=== PATIENT | female | born 1950 | race Caucasian/White ===

== ENCOUNTER → 2017-12-19 16:23 | Outpatient (CLI) | payer OTHER, SELFPAY ==
--- NOTE | 2017-12-23 10:53 | PM.PFT.1 ---
Pulmonary Function Test Referral & Results Date Patient Seen: 12/19/17 Requesting provider: Reba Stover Results: The spirometry demonstrates an FVC of 2.13 L which is 71% of predicted. The FEV1 was measured at 1.70 L which is 75% of predicted. The FEV1/FVC ratio was 80 which is 103% of predicted. Following the administration of bronchodilator there was a 12% improvement in FEV1 and a 55% improvement in FEF 25-75%. Lung volumes show an SVC of 2.18 L which is 77% of predicted. The diffusing capacity was measured at 21.08 which is 91% of predicted. The maximum voluntary ventilation was slightly reduced. Interpretation: This study demonstrates mild obstructive lung disease with some limited evidence of benefit following the administration of bronchodilator based upon 12% improvement in FEV1 and 50+ percent improvement in FEF 25-75% There is also mild restrictive lung disease present
== END ==
PROVIDERS: Family Provider Internal Medicine; PCP Internal Medicine; Visit Provider Internal Medicine
DX: R05 Cough (principal); R06.2 Wheezing; J98.4 Other disorders of lung
CPT/HCPCS: 94010; 94060; 94726; 94729

== ENCOUNTER → 2018-06-01 13:45 | Outpatient (CLI) | payer OTHER, SELFPAY ==
[2018-06-01 14:44] LABS: Hematocrit 38.3 % (36-46); Hemoglobin 12.9 g/dL (12.0-16.0)
[2018-06-01 15:17] LABS: Cholesterol 198 mg/dL (140-199); HDL Cholesterol 59 mg/dL (40-60); LDL Cholesterol Calculated 116 mg/dL (<100); Triglycerides 116 mg/dL (35-150)
[2018-06-01 15:27] LABS: Alanine Aminotransferase 25 IU/L (9-52); Albumin 4.6 g/dL (3.5-5.0); Albumin Globulin Ratio 1.5 (1.0-2.8); Alkaline Phosphatase 67 U/L (38-126); Aspartate Aminotransferase 24 IU/L (14-36); Bilirubin Total 0.4 mg/dL (0.2-1.3); Blood Urea Nitrogen 18 mg/dL (7-17); Calcium 9.5 mg/dL (8.4-10.2); Carbon Dioxide 26 mmol/L (22-32); Chloride 104 mmol/L (98-107); Estimated Glomerular Filt Rate > 60.0 mL/min (>60); Globulin 3.1 g/dL (1.7-4.1); Glucose 90 mg/dL (80-110); HEMOLYSIS < 15 (0-50); Potassium 3.9 mmol/L (3.4-5.1); Sodium 144 mmol/L (137-145); Total Protein 7.7 g/dL (6.3-8.2)
[2018-06-01 15:47] LABS: Thyroid Stimulating Hormone 2.41 uIU/mL (0.47-4.68)
== END ==
PROVIDERS: Family Provider Internal Medicine; PCP Internal Medicine; Visit Provider Registered Nurse
DX: R42 Dizziness and giddiness (principal); E78.5 Hyperlipidemia, unspecified
CPT/HCPCS: 36415; 80053; 80061; 84443; 85014; 85018

== ENCOUNTER → 2018-06-21 15:16 | Outpatient (CLI) | payer OTHER, SELFPAY ==
--- NOTE | 2018-06-21 15:20 | DI.CT.S_ITS ---
PROCEDURE: CT CHEST WO CON INDICATIONS: chronic cough, h/o smoking TECHNIQUE: Noncontrast 5 mm thick sections acquired from the pulmonary apices to the posterior costophrenic angles. 7 mm thick coronal and sagittal MIP reformats were then acquired. For radiation dose reduction, the following was used: automated exposure control, adjustment of mA and/or kV according to patient size. COMPARISON: Former[facility], CT, CT-IVP, 03/03/2008, 11:53. [facility], CT, ABDOMEN/PELVIS WITH CONTRAST, 05/15/2008, 8:43. Former[facility], CR, CHEST 2 VIEW, 12/04/2017, 9:56. FINDINGS: Image quality: Excellent. Lungs and pleura: There is a 3 mm noncalcified nodule in the left lower lobe (series 3 image 29), unchanged since 05/15/2008, consistent with a benign nodule. A 4 mm calcified nodule in the left lower lobe is consistent with an old granuloma. There is right hemidiaphragm eventration and right lower lobe atelectasis. No acute air space opacities. No pleural effusions or pneumothorax. Central and peripheral airways are patent and normal in caliber. Mediastinum: Heart size is normal. No pericardial effusion. Slightly prominent subcarinal lymph node measures 1.5 cm in short axis. Thoracic aorta and central pulmonary arteries are normal in size. Esophagus is normal in caliber. No hiatal hernia. Bones and chest wall: No suspicious bony lesions. No vertebral body compression fractures. No axillary or supraclavicular adenopathy by size criteria. Thyroid gland is normal. Abdomen: Visualized upper abdominal solid organs and bowel loops appear normal in the absence of contrast. Scattered colonic diverticula noted. IMPRESSION: 1. A couple of benign nodules are present in the left lower lobe. No further followup is recommended. 2. Right hemidiaphragm eventration and right basilar atelectasis. 3. A cause for chronic cough is not identified. 4. Mildly enlarged subcarinal lymph node measuring 1.5 cm. This finding is nonspecific and may be reactive. Recommend clinical correlation and follow up. 5. Mild colonic diverticulosis. Dictated by: Robyn Verma M.D. on 06/21/2018 at 16:02 Approved by: Robyn Verma M.D. on 06/21/2018 at 16:13
== END ==
PROVIDERS: Family Provider Internal Medicine; PCP Internal Medicine; Visit Provider Internal Medicine
DX: R05 Cough (principal); R91.8 Other nonspecific abnormal finding of lung field; J98.11 Atelectasis; K57.90 Diverticulosis of intestine, part unspecified, without perforation or abscess without bleeding; R59.0 Localized enlarged lymph nodes; Z87.891 Personal history of nicotine dependence
CPT/HCPCS: 71250

== ENCOUNTER 2018-06-29 14:48 | Outpatient (RCR) | payer OTHER, SELFPAY ==
--- NOTE | 2018-06-29 16:00 | PT.OPPOC ---
Current Diagnoses Dizziness and giddiness (06/29/18) Provider Visit Care Team Role Provider Type SARA Rasheed Family Provider Advanced Nitrating Acid Mixer Primary Care Provider Specialty: Family Practice Address: [address] [place] [address], [id number] Email: [email or web address] Elton Rojas MD Attending Provider Physician Specialty: Ear, Nose, Throat Address: [address] [place] [address], [id number] Email: Plan Of Care PT-OP-T Assessment and Plan Start: 07/02/18 11:19 Freq: Status: Active Protocol: Document 06/29/18 15:15 DCW (Rec: 07/02/18 11:44 DCW [id number]) Physical Therapy Assessment Rehab Potential Rehabilitation Potential Fair Evaluation Complexity Number of Personal Factors/Comorbidities 0 Number of Body Systems Impaired 1-2 Clinical Presentation at Evaluation Unstable Impairments Impairments Balance Vestibular Assessment Summary Assessment Pt presents with signs and symptoms somewhat consistent with visual motion sensitivity /optokinetic nystagmus, however this is mainly based on her history and subjective symptoms. Pt's vestibular exam is almost entirely negative, with the only abnormal result being a 5-line degradation during her DVA test, however, that is not very meaningful by itself. Pt was given some VOR retraining exercises, however since she has no ongoing symptoms while not in an episode, there is no indication that further skilled therapy will improve her condition. Pt is in agreement with her new HEP and discharge at this time. Physical Therapy Plan Frequency and Duration Frequency of Treatment D/C Plan of Care Start Date 06/29/18 Plan of Care End Date 06/29/18 Discharge Physical Therapy Discharge Reasons No Longer Attending PT Discharge Comments No further PT indicated at this time. Plan of Care Dates Plan of Care Start Date 06/29/18 Plan of Care End Date 06/29/18 Please Sign and Return: I have reviewed this Plan of Care and certify that the skilled therapy services above are required to meet the patient?s needs. Physician Signature Date Printed Name and Credentials Clinical Instructor Signature Printed Name and Credentials
--- NOTE | 2018-06-29 16:00 | PT.OIE ---
Current Diagnoses Dizziness and giddiness (06/29/18) Past Medical History (Last Reviewed 06/01/18 @ 15:34 by SARA Mcgovern) Allergic contact dermatitis (Chronic ~1979) Chronic back pain (Chronic 2011) Foot pain (Chronic 1999) Hayfever (Chronic ~1979) Hyperthyroidism (Chronic 2009) Shoulder pain (Chronic 2009) Urinary incontinence (Chronic ~1989) Chicken pox (Resolved) Measles (Resolved) Mumps (Resolved) Past Surgical History (Last Reviewed 06/01/18 @ 15:34 by SARA Mcgovern) Anesthesia (Resolved) Status post dilation and curettage (Resolved 08/18/15) Status post hysteroscopy (Resolved 08/18/15) Provider Visit Care Team Role Provider Type SARA Rasheed Family Provider Advanced Stain Applicator Primary Care Provider Specialty: Family Practice Address: [address] [place] [address] Email: [email or web address] Elton Rojas MD Attending Provider Physician Specialty: Ear, Nose, Throat Address: [address] [place] [address] Email: Physical Therapy Initial Evaluation PT-OP-A Visit Information Start: 07/02/18 11:19 Freq: Status: Active Protocol: Document 06/29/18 15:15 DCW (Rec: 07/02/18 11:44 DC [id number]) Out-Patient Physical Therapy Visit Information Visit Information Visit Type Initial Evaluation Visit Start Time 15:15 Visit Stop Time 16:00 Total Visit Minutes 45 Visit Number 1 Number of SENIOR REACTOR OPERATOR Visits 0 Evaluation Information Evaluation Date 06/29/18 PT-OP-B Current Condition Start: 07/02/18 11:19 Freq: Status: Active Protocol: Document 06/29/18 15:15 DCW (Rec: 07/02/18 11:44 DCW [id number]) Current Condition History of Current Condition Onset Date Two months ago Current Complaints Lightheadedness with visual motion History of Current Condition Pt is a 68 year old female presenting with a two month history of episodes of lightheadedness and heart palpitations, which are reportedly random, but per pt' s reports, appear to be associated with increased visual motion. Pt reports her first episode occurred when walking around downtown [place] during the [place], and her second one occurred while walking through a casino in [place]. Pt notes three other episodes, however she cannot remember anything notable occurring. Pt reports her episodes last about three hours, however she does not really feel like she has any difficulty when she is not in the middle of an episode. Pt reports no other real medical issues. Treatment Goals Patient/Caregiver Goals I don't really know if PT will help, because I don't really have any balance problems when I'm not having an episode. Prior Functional Status Baseline Function- ADL's Independent Baseline Function- Mobility Independent PT-OP-C Subjective Start: 07/02/18 11:19 Freq: Status: Active Protocol: Document 06/29/18 15:15 DCW (Rec: 07/02/18 11:44 DCW [id number]) Patient Questionnaires ABC- Activity Specific Balance Confidence Scale ABC Score 80.94% ABC Functional Impairment 1 to <20% Impaired (Score 81- 99) Dizziness Handicap Inventory DHI Score 24% DHI Functional Impairment 20 to 39% Impaired (Score 20- 39) OP-PT Pain Assessment Pain Assessment Grid Paper Pain Assessment Grid Completed No PT-OP-D Balance Start: 07/02/18 11:19 Freq: Status: Active Protocol: Document 06/29/18 15:15 DCW (Rec: 07/02/18 11:44 DCW [id number]) OP-PT Balance Assessment Sitting Balance Static Sitting Balance Ability Normal Dynamic Sitting Balance Ability Normal Standing Balance Static Standing Balance Ability Normal Dynamic Standing Balance Ability Normal Balance Tests CTSIB CTSIB Position 1 Slight Sway CTSIB Position 2 Mild Sway CTSIB Position 3 Mild Sway CTSIB Position 4 Mild Sway CTSIB Position 5 Moderate Sway CTSIB Position 6 Mild Sway Nichols Fall Scale Copyright Permission Simone SABILLON, Simone RM, Nicanor SJ. Development of a scale to identify the fall- prone patient. Can J Aging 1989;8;366-7. Namita Nichols (2009). Preventing patient falls. (2nd ed). [place]: Burrell. PT-OP-E Functional Tests Start: 07/02/18 11:44 Freq: Status: Active Protocol: Document 06/29/18 15:15 DCW (Rec: 07/02/18 11:45 DCW [id number]) Functional Tests Functional Gait Assessment Score 30/30 Functional Gait Assessment Impairment 0% Impaired (Score 30) Rating PT-OP-O Vestibular Start: 07/02/18 11:19 Freq: Status: Active Protocol: Document 06/29/18 15:15 DCW (Rec: 07/02/18 11:44 DCW [id number]) Vestibular Assessment Screening Tests Vestibular Artery Screen Negative Auditory Tests Gordon Test Negative Rinne Test Negative Air Conduction Results Equal Visual Testing Smooth Pursuits Horizontal Negative Smooth Pursuits Vertical Negative Saccades Horizontal Negative Gaze Evoked Nystagmus With Fixation Negative Gaze Evoked Nystagmus Without Fixation Negative Heave Test Negative Thrust Head Negative DVA (Line Degradation) 5 Head Shake Negative Positional Testing [place]-Hallpike Negative Left Negative Right Rolling Test Negative Left Negative Right PT-OP-Q Treatments Start: 07/02/18 11:19 Freq: Status: Active Protocol: Document 06/29/18 15:15 DCW (Rec: 07/02/18 11:44 DCW [id number]) Neuro Re-Education Treatment Vestibular Rehabilitation Corrective Saccades Distance From Target Arm length Speed As tolerated Targets Distance From Target Arm length Speed As tolerated X1 Viewing Distance From Target Arm length Speed As tolerated VOR Retraining Distance From Target Arm length Speed As tolerated PT-OP-T Assessment and Plan Start: 07/02/18 11:19 Freq: Status: Active Protocol: Document 06/29/18 15:15 DCW (Rec: 07/02/18 11:44 DCW [id number]) Physical Therapy Assessment Rehab Potential Rehabilitation Potential Fair Evaluation Complexity Number of Personal Factors/Comorbidities 0 Number of Body Systems Impaired 1-2 Clinical Presentation at Evaluation Unstable Impairments Impairments Balance Vestibular Assessment Summary Assessment Pt presents with signs and symptoms somewhat consistent with visual motion sensitivity /optokinetic nystagmus, however this is mainly based on her history and subjective symptoms. Pt's vestibular exam is almost entirely negative, with the only abnormal result being a 5-line degradation during her DVA test, however, that is not very meaningful by itself. Pt was given some VOR retraining exercises, however since she has no ongoing symptoms while not in an episode, there is no indication that further skilled therapy will improve her condition. Pt is in agreement with her new HEP and discharge at this time. Physical Therapy Plan Frequency and Duration Frequency of Treatment D/C Plan of Care Start Date 06/29/18 Plan of Care End Date 06/29/18 Discharge Physical Therapy Discharge Reasons No Longer Attending PT Discharge Comments No further PT indicated at this time.
--- NOTE | 2018-07-02 11:45 | PT.OIE ---
Current Diagnoses Dizziness and giddiness (06/29/18) Past Medical History (Last Reviewed 06/01/18 @ 15:34 by SARA Mcgovern) Allergic contact dermatitis (Chronic ~1979) Chronic back pain (Chronic 2011) Foot pain (Chronic 1999) Hayfever (Chronic ~1979) Hyperthyroidism (Chronic 2009) Shoulder pain (Chronic 2009) Urinary incontinence (Chronic ~1989) Chicken pox (Resolved) Measles (Resolved) Mumps (Resolved) Past Surgical History (Last Reviewed 06/01/18 @ 15:34 by SARA Mcgovern) Anesthesia (Resolved) Status post dilation and curettage (Resolved 08/18/15) Status post hysteroscopy (Resolved 08/18/15) Provider Visit Care Team Role Provider Type SARA Rasheed Family Provider Advanced Paper Cap Machine Operator Primary Care Provider Specialty: Family Practice Address: [address] [place] [address] Email: [email or web address] Elton Rojas MD Attending Provider Physician Specialty: Ear, Nose, Throat Address: [address] [place] [address] Email: Physical Therapy Initial Evaluation PT-OP-A Visit Information Start: 07/02/18 11:19 Freq: Status: Active Protocol: Document 06/29/18 15:15 DCW (Rec: 07/02/18 11:44 DC [id number]) Out-Patient Physical Therapy Visit Information Visit Information Visit Type Initial Evaluation Visit Start Time 15:15 Visit Stop Time 16:00 Total Visit Minutes 45 Visit Number 1 Number of TRANSITION MANAGER Visits 0 Evaluation Information Evaluation Date 06/29/18 PT-OP-B Current Condition Start: 07/02/18 11:19 Freq: Status: Active Protocol: Document 06/29/18 15:15 DCW (Rec: 07/02/18 11:44 DCW [id number]) Current Condition History of Current Condition Onset Date Two months ago Current Complaints Lightheadedness with visual motion History of Current Condition Pt is a 68 year old female presenting with a two month history of episodes of lightheadedness and heart palpitations, which are reportedly random, but per pt' s reports, appear to be associated with increased visual motion. Pt reports her first episode occurred when walking around downtown [place] during the [place], and her second one occurred while walking through a casino in [place]. Pt notes three other episodes, however she cannot remember anything notable occurring. Pt reports her episodes last about three hours, however she does not really feel like she has any difficulty when she is not in the middle of an episode. Pt reports no other real medical issues. Treatment Goals Patient/Caregiver Goals I don't really know if PT will help, because I don't really have any balance problems when I'm not having an episode. Prior Functional Status Baseline Function- ADL's Independent Baseline Function- Mobility Independent PT-OP-C Subjective Start: 07/02/18 11:19 Freq: Status: Active Protocol: Document 06/29/18 15:15 DCW (Rec: 07/02/18 11:44 DCW [id number]) Patient Questionnaires ABC- Activity Specific Balance Confidence Scale ABC Score 80.94% ABC Functional Impairment 1 to <20% Impaired (Score 81- 99) Dizziness Handicap Inventory DHI Score 24% DHI Functional Impairment 20 to 39% Impaired (Score 20- 39) OP-PT Pain Assessment Pain Assessment Grid Paper Pain Assessment Grid Completed No PT-OP-D Balance Start: 07/02/18 11:19 Freq: Status: Active Protocol: Document 06/29/18 15:15 DCW (Rec: 07/02/18 11:44 DCW [id number]) OP-PT Balance Assessment Sitting Balance Static Sitting Balance Ability Normal Dynamic Sitting Balance Ability Normal Standing Balance Static Standing Balance Ability Normal Dynamic Standing Balance Ability Normal Balance Tests CTSIB CTSIB Position 1 Slight Sway CTSIB Position 2 Mild Sway CTSIB Position 3 Mild Sway CTSIB Position 4 Mild Sway CTSIB Position 5 Moderate Sway CTSIB Position 6 Mild Sway Nichols Fall Scale Copyright Permission Simone SABILLON, Simone RM, Nicanor SJ. Development of a scale to identify the fall- prone patient. Can J Aging 1989;8;366-7. Namita Nichols (2009). Preventing patient falls. (2nd ed). [place]: Burrell. PT-OP-E Functional Tests Start: 07/02/18 11:44 Freq: Status: Active Protocol: Document 06/29/18 15:15 DCW (Rec: 07/02/18 11:45 DCW [id number]) Functional Tests Functional Gait Assessment Score 30/30 Functional Gait Assessment Impairment 0% Impaired (Score 30) Rating PT-OP-O Vestibular Start: 07/02/18 11:19 Freq: Status: Active Protocol: Document 06/29/18 15:15 DCW (Rec: 07/02/18 11:44 DCW [id number]) Vestibular Assessment Screening Tests Vestibular Artery Screen Negative Auditory Tests Gordon Test Negative Rinne Test Negative Air Conduction Results Equal Visual Testing Smooth Pursuits Horizontal Negative Smooth Pursuits Vertical Negative Saccades Horizontal Negative Gaze Evoked Nystagmus With Fixation Negative Gaze Evoked Nystagmus Without Fixation Negative Heave Test Negative Thrust Head Negative DVA (Line Degradation) 5 Head Shake Negative Positional Testing [place]-Hallpike Negative Left Negative Right Rolling Test Negative Left Negative Right PT-OP-Q Treatments Start: 07/02/18 11:19 Freq: Status: Active Protocol: Document 06/29/18 15:15 DCW (Rec: 07/02/18 11:44 DCW [id number]) Neuro Re-Education Treatment Vestibular Rehabilitation Corrective Saccades Distance From Target Arm length Speed As tolerated Targets Distance From Target Arm length Speed As tolerated X1 Viewing Distance From Target Arm length Speed As tolerated VOR Retraining Distance From Target Arm length Speed As tolerated PT-OP-T Assessment and Plan Start: 07/02/18 11:19 Freq: Status: Active Protocol: Document 06/29/18 15:15 DCW (Rec: 07/02/18 11:44 DCW [id number]) Physical Therapy Assessment Rehab Potential Rehabilitation Potential Fair Evaluation Complexity Number of Personal Factors/Comorbidities 0 Number of Body Systems Impaired 1-2 Clinical Presentation at Evaluation Unstable Impairments Impairments Balance Vestibular Assessment Summary Assessment Pt presents with signs and symptoms somewhat consistent with visual motion sensitivity /optokinetic nystagmus, however this is mainly based on her history and subjective symptoms. Pt's vestibular exam is almost entirely negative, with the only abnormal result being a 5-line degradation during her DVA test, however, that is not very meaningful by itself. Pt was given some VOR retraining exercises, however since she has no ongoing symptoms while not in an episode, there is no indication that further skilled therapy will improve her condition. Pt is in agreement with her new HEP and discharge at this time. Physical Therapy Plan Frequency and Duration Frequency of Treatment D/C Plan of Care Start Date 06/29/18 Plan of Care End Date 06/29/18 Discharge Physical Therapy Discharge Reasons No Longer Attending PT Discharge Comments No further PT indicated at this time.
== END 2018-08-27 15:47 ==
LOC: PHYS 14:48
PROVIDERS: Family Provider Internal Medicine; PCP Internal Medicine; Visit Provider Otolaryngology
DX: R42 Dizziness and giddiness (principal)
CPT/HCPCS: 97112; 97161

== ENCOUNTER → 2018-07-17 06:57 | Outpatient (CLI) | payer OTHER, SELFPAY ==
[2018-07-17 07:54] LABS: Add Manual Diff / Slide Review NO; Basophils Percent Auto 1.5 % (0-2); Eosinophils Percent Auto 3.8 % (2-4); Hematocrit 40.8 % (36-46); Hemoglobin 13.5 g/dL (12.0-16.0); Lymphocytes Percent Auto 25.1 % (25-40); Mean Corpuscular HGB Conc 33.1 % (30-36); Mean Corpuscular Hemoglobin 29.7 PG (26-34); Mean Corpuscular Volume 89.8 fL (80-100); Monocytes Percent Auto 9.9 % (3-14); Neutrophils Absolute Auto 2800 /uL (3000-5900); Neutrophils Percent Auto 59.7 % (50-75); Platelet Count 288 X10^3/uL (150-400); Red Blood Cell Count 4.54 X10^6/uL (4.0-5.2); Red Cell Distribution Width 12.7 % (11.6-14.8); White Blood Cell Count 4.7 X10^3/uL (4.5-11.0)
== END ==
PROVIDERS: PCP Internal Medicine; Visit Provider Internal Medicine
DX: E03.9 Hypothyroidism, unspecified (principal); E78.5 Hyperlipidemia, unspecified
CPT/HCPCS: 36415; 85025

== ENCOUNTER → 2018-07-24 15:58 | Outpatient (CLI) | payer OTHER, SELFPAY ==
--- NOTE | 2018-07-24 16:02 | DI.RAD.S_ITS ---
PROCEDURE: XR CHEST 2V INDICATIONS: follow up lymph node seen on Chest CT TECHNIQUE: 2 views of the chest were acquired. COMPARISON: [facility], , CHEST 2 VIEW, 12/04/2017, 9:56. FINDINGS: Surgical changes and devices: None. Lungs and pleura: No pleural effusions or pneumothorax. Lungs are clear. Elevation of right hemidiaphragm is again seen and unchanged. Mediastinum: Mediastinal contours are normal. Heart size is normal. Bones and chest wall: No suspicious bony abnormalities. Soft tissues appear unremarkable. IMPRESSION: No acute cardiopulmonary pathology. Persistent elevation of right hemidiaphragm. Dictated by: Yifan Polanco M.D. on 07/24/2018 at 16:33 Approved by: Yifan Polanco M.D. on 07/24/2018 at 16:41
== END ==
PROVIDERS: Family Provider Internal Medicine; PCP Internal Medicine; Visit Provider Family Medicine
DX: R59.0 Localized enlarged lymph nodes (principal); R05 Cough
CPT/HCPCS: 71046

== ENCOUNTER → 2018-08-23 09:13 | Outpatient (CLI) | payer OTHER, SELFPAY ==
[2018-08-23 09:55] LABS: Influenza A and B by PCR Rapid Negative (Negative)
== END ==
PROVIDERS: Family Provider Internal Medicine; PCP Internal Medicine; Visit Provider Physician Assistant
DX: R68.89 Other general symptoms and signs (principal)
CPT/HCPCS: 87400

== ENCOUNTER → 2019-08-08 13:40 | Outpatient (CLI) | payer OTHER, SELFPAY ==
--- NOTE | 2019-08-08 | DI.US.S_ITS ---
PROCEDURE: US THYROID INDICATIONS: DYSPHAGIA TECHNIQUE: Real-time scanning was performed of the thyroid gland, with image documentation. COMPARISON: None. FINDINGS: Right: Thyroid lobe measures 3.4 x 0.7 x 1.5 cm, and is homogeneous in echotexture. Sub-5 mm hypoechoic nodules present. Left: Thyroid lobe measures 3.3 x 1.0 x 0.7 cm, and is homogenous in echotexture. Sub-5 mm hypoechoic nodules present. Isthmus: 1.4 mm thick. IMPRESSION: Sub-5 mm hypoechoic nodules present; otherwise the thyroid is normal. Given the small sizes, no follow up is warranted. Dictated by: Tod COTTON Interpreted: Yifan Polanco MD on 08/08/2019 at 16:57 Approved by: Yifan Polanco M.D. on 08/08/2019 at 21:17
== END ==
PROVIDERS: Family Provider Internal Medicine; PCP Internal Medicine; Visit Provider Internal Medicine
DX: R13.10 Dysphagia, unspecified (principal); E04.2 Nontoxic multinodular goiter; M85.88 Other specified disorders of bone density and structure, other site; Z78.0 Asymptomatic menopausal state; Z87.891 Personal history of nicotine dependence
CPT/HCPCS: 76536; 77080

== ENCOUNTER → 2019-10-30 10:15 | Outpatient (CLI) | payer OTHER, SELFPAY ==
--- NOTE | 2019-10-30 | DI.RAD.S_ITS ---
PROCEDURE: FL UPPER GI W AIR INDICATIONS: Dysphagia COMPARISON: None. FINDINGS: KUB: Preprocedural slackman film demonstrates a normal bowel gas pattern. No suspicious abdominal calcifications. Visualized solid organ contours appear normal. Bony structures appear unremarkable. Esophagus: Esophageal mucosa is normal on air-contrast views. There is esophageal dysmotility. No strictures, extrinsic mass effects, or diverticula. No hiatal hernia or elicited gastroesophageal reflux. Stomach: The stomach is normally distensible, with normal rugal fold thickness. No mucosal masses or ulcers. Pylorus and duodenal bulb appear normal in morphology. Duodenal folds are normal in thickness as well. IMPRESSION: Esophageal dysmotility otherwise unremarkable examination as above Dictated by: Dino Bailey M.D. on 10/30/2019 at 13:24 Approved by: Dino Bailey M.D. on 10/30/2019 at 13:25
== END ==
PROVIDERS: Family Provider Internal Medicine; PCP Internal Medicine; Referring Provider Internal Medicine; Visit Provider Internal Medicine
DX: R13.10 Dysphagia, unspecified (principal); K22.4 Dyskinesia of esophagus
CPT/HCPCS: 74240

== ENCOUNTER → 2020-03-20 14:24 | Outpatient (CLI) | payer OTHER, SELFPAY ==
[2020-03-23 21:06] LABS: COVID19 Sendout Not Detected (Not Detect)
== END ==
PROVIDERS: PCP Internal Medicine; Visit Provider Physician Assistant
DX: Z11.59 Encounter for screening for other viral diseases (principal)
CPT/HCPCS: 87635

== ENCOUNTER 2020-03-23 14:26 | Day surgery (SDC) | payer OTHER, SELFPAY ==
--- NOTE | 2020-03-23 | PATH_ITS ---
[facility] Accession Number: [id number] . 01 Material submitted: . PART A: duodenum - DUODENUM PART B: stomach - PYLORUS PART C: stomach - FUNDUS PART D: stomach - BODY OF STOMACH PART E: esophagus, E-G Junction - 3 O'CLOCK GE JUNCTION PART F: esophagus, E-G Junction - 12 O'CLOCK GE JUNCTION PART G: esophagus - MID ESOPHAGUS . 02 Diagnosis: A. Duodenum, Biopsy: Duodenal mucosa with no diagnostic abnormality. Negative for active inflammation, features of sprue, dysplasia, or malignancy. . B. Stomach, Pylorus, Biopsy: Antral mucosa with mild chronic gastritis. Negative for Helicobacter by immunohistochemistry. Negative for intestinal metaplasia. Negative for dysplasia and malignancy. . C. Stomach, Fundus, Biopsy: Body-type mucosa with no diagnostic abnormality. No evidence of Helicobacter on H/E stain. Negative for intestinal metaplasia. Negative for dysplasia and malignancy. . D. Stomach, Body, Biopsy: Body-type mucosa with mild chronic gastritis. Negative for Helicobacter by immunonhistochemistry. Negative for intestinal metaplasia. Negative for dysplasia and malignancy. . E-F: Gastroesophageal Junction, 3 o'clock, 12 o'clock, Biopsies: Squamous epithelium with no diagnostic abnormality. Intraepithelial eosinophils are not increased. Columnar epithelium not sampled. Negative for dysplasia and malignancy. . G. Mid Esophagus, Biopsy: Squamous epithelium with no diagnostic abnormality. Intraepithelial eosinophils are not increased. Negative for dysplasia and malignancy. [facility] 03/26/2020 1414 Local . 02 Electronically signed: . Elisha Lyn MD, Pathologist NPI- [id number] . 01 Gross description: . Part A: DUODENUM: Received in formalin is 1 fragment(s) of phelan, soft tissue measuring 0.1 x 0.1 x 0.1 cm submitted entirely in 1 cassette(s) Part B: PYLORUS: Received in formalin is 1 fragment(s) of phelan, soft tissue measuring 0.2 x 0.1 x 0.1 cm submitted entirely in 1 cassette(s) Part C: FUNDUS: Received in formalin is 1 fragment(s) of phelan, soft tissue measuring 0.3 x 0.2 x 0.2 cm submitted entirely in 1 cassette(s) Part D: BODY OF STOMACH: Received in formalin is 1 fragment(s) of phelan, soft tissue measuring 0.2 x 0.2 x 0.2 cm submitted entirely in 1 cassette(s) Part E: 3 O'CLOCK GE JUNCTION: Received in formalin is 1 fragment(s) of phelan, soft tissue measuring 0.1 x 0.1 x 0.1 cm submitted entirely in 1 cassette(s) Part F: 12 O'CLOCK GE JUNCTION: Received in formalin is 1 fragment(s) of phelan, soft tissue measuring 0.1 x 0.1 x 0.1 cm submitted entirely in 1 cassette(s) Part G: MID ESOPHAGUS: Received in formalin is 1 fragment(s) of phelan, soft tissue measuring 0.1 x 0.1 x 0.1 cm submitted entirely in 1 cassette(s) /THAD 03/24/2020 1935 Local . 02 Microscopic: . B-D: Immunohistochemical stains were performed on blocks B and D in order to evaluate for Helicobacter organisms and are both negative. The control stain showed appropriate reactivity. . * This test was developed and its performance characteristics determined by [facility]. It has not been cleared or approved by the U.S. Food and Drug Administration. The FDA has determined that such clearance or approval is not necessary. This test is used for clinical purposes. It should not be regarded as investigational or for research. . 02 Pathologist provided ICD-10: K22.4 . 02 CPT . 500054, 823224, 669570, 070828, 999109, 834748, 202127, G02813 Performed at: 01 [facility] [address] [place] [address], [place], [place] [id number] MD Sebas Palumbo MD Phone: [phone] Performed at: 02 [facility] [address] [place], [place] [id number] MD Elisha Lyn MD Phone: [phone]
--- NOTE | 2020-03-23 12:28 | P.HP_ITS ---
History of Present Illness History of Present Illness Date Patient Seen: 03/23/20 Chief complaint: DCC Narrative: 69 Years Old Female seen today for consideration of a screening colonoscopy a diagnostic EGD. She has had 2 previous endoscopies, a sigmoidoscopy approximately 15 to 20 years ago and a colonoscopy approximately 10 years ago, significant for diverticulosis. Denies any known history of polyps. Records not available at time of dictation. There have been no lower GI symptoms suggesting disease such as change in bowel habits, bleeding, abdominal pain or anemia. There's been no family history of colon cancer or colon polyps. She has been having dysphagia for 2 years. Reports that the feeling started at the base of her esophagus; was having a sensation that food was getting stuck. She also feels the same sensation sometimes at the back of her throat. Occurs both with water and solid food, not sure which one is more difficult. Never needs to vomit to release the pressure. Associated hoarse voice and a feeling that air is going up her sternum when she takes a deep breath. Originally referred to ENT but did not keep that appointment. On 10/28/2019 she stopped her Fosamax to see if that would help her dysphagia and it did not. She has since restarted it since her bone density worsened. Subsequent upper GI on 10/30/2019 showed esophageal dysmotility with no evidence of hiatal hernia or GERD. 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 No hematemesis, nausea, or sense of oral fullness. Has had a thyroid nodule, surveillance ultrasound on 08/07 showed a sub-5 mm hypoechoic nodule that due to the small size did not warrant follow-up. Overall health issues have been stable, including no major cardiac events for at least 6 weeks. Current Medications: 1) Betamethasone Dipropionate 0.05 % External Cream (Betamethasone Dipropionate) .... Apply a thin film to the affected area 2-3 times daily. Not for use on face. 2) Zyrtec Allergy 10 Mg Oral Capsule (Cetirizine Hcl) .... Take one tablet daily as needed for allergy symptoms. 3) Alendronate Sodium 70 Mg Oral Tablet (Alendronate Sodium) .... 1 tablet once a wk for osteoporosis. Take first a.m. with 8 oz. water. Don't lie down, eat or drink for 30 min. 4) Levothyroxine Sodium 88 Mcg Oral Tablet (Levothyroxine Sodium) .... Take one tablet 30-45 minutes prior to eating or drinking daily 5) Alclometasone Dipropionate 0.05 % External Cream (Alclometasone Dipropionate) .... Apply as needed for allergy symptoms 6) Patanol 0.1 % Ophthalmic Solution (Olopatadine Hcl) .... 1-2 drops each eye twice daily, as needed for allergic eye symptoms. Allergies: No Known Drug Allergies Past Medical History: Pregnancies: 1 Live Births: 1 Living Children: 1 PFT: 12/19/17 - Mild restrictive lung disease Multiple thyroid nodules HOARSENESS DYSPHAGIA OSTEOPOROSIS, POSTMENOPAUSAL Multiple nodules of lung SHORTNESS OF BREATH Past Surgical History: sigmoidoscopy, 1999 (approx) colonosocpy, 2009 (approx) Family History: Father: Apollo Vanessa (1927) - living Mother: Tari Vanessa (1926) - stroke late 70 years of age Siblings: Dajuan Otf (1957), Bryce Vanessa (1979), Sherin Otf Social History: Marital Status: - Minesh Bone - Retired Children: 1 - Keenan Norris 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 Household Members: 2 Education: 12th grade. Patient History Medical History (Updated 07/24/18 @ 18:47 by SARA Rasheed) Allergic contact dermatitis (Chronic ~1979) Chicken pox (Resolved) Chronic back pain (Chronic 2011) Foot pain (Chronic 1999) Hayfever (Chronic ~1979) Hyperthyroidism (Chronic 2009) Measles (Resolved) Mumps (Resolved) Shoulder pain (Chronic 2009) Urinary incontinence (Chronic ~1989) Surgical History Anesthesia (Resolved) Status post dilation and curettage (Resolved 08/18/15) Status post hysteroscopy (Resolved 08/18/15) Family & Social History Family History Brother Age: 61 Gout Kidney stone Nonalcoholic fatty liver disease Father Age: 91 Hypertension High cholesterol Kidney stone Mother Cancer Hypertension Stroke Brother No problems noted. Sister No problems noted. Tobacco & Substance use: Smoking Status Former smoker Meds Home Medications and Allergies Home Medications Medication Instructions Recorded Confirmed Type cetirizine 10 mg capsule 10 mg PO PRN PRN cap 06/01/18 03/23/20 History alendronate 70 mg tablet 70 mg PO QWEEK #12 tab 07/24/18 03/23/20 Rx betamethasone dipropionate 1 applic TOPICAL QDAY 03/23/20 03/23/20 History levothyroxine [Synthroid] 88 mcg PO QAM 03/23/20 03/23/20 History Allergies Allergy/AdvReac Type Severity Reaction Status Date / Time No Known Drug Allergies Allergy Verified 03/20/20 15:51 Review of Systems Review of Systems ROS: Yes All systems reviewed with the patient and are negative except as otherwise documented Exam Narrative Exam Narrative: General: Alert and oriented, appearing stated age and in no acute distress. Head: Head normocephalic/atraumatic. Neck: Neck soft and supple, no lymphadenopathy. Lungs: Clear to auscultation bilaterally, no wheezes, rhonchi or rales. Heart: normal rate and regular rhythm, no murmurs, rubs, gallops, or clicks, Abdomen: abdomen soft and non-tender without masses, organomegaly, or abdominal wall hernias, bowel sounds positive. Skin: intact without suspicious lesions or rashes, Psych: alert and cooperative; normal mood and affect; normal attention span and concentration; cognition, remote and recent memory appear to be intact, Assessment & Plan Assessment & Plan narrative: 1. Esophageal dysmotility 2. Dysphagia 3. Hoarseness 4. Screening for colon cancer 5. History of diverticulosis PLAN: 1. EGD 2. Colonoscopy The nature and character of the procedures as well as anticipated results were discussed. The possibility of not completing the procedure was also discussed. Possible complications including aspiration pneumonia, bleeding, perforation and reaction to medications either for sedation or preparation and missed lesions were discussed. Questions were answered and proceeding to the colonoscopy was elected. Informed consent signed.
--- NOTE | 2020-03-23 12:35 | PM.OP.ENDO ---
Operative Date/Time/Diagnoses Date of procedure: 03/23/20 Pre-op diagnosis: 1. Esophageal dysmotility 2. Dysphagia 3. Hoarseness Post-op diagnosis: other (see below) Procedure & Clinicians Study performed: EGD Same procedure as scheduled: Yes Indications: 1. Esophageal dysmotility 2. Dysphagia 3. Hoarseness Surgeon: Chichi Hanley Procedure Notes Procedure in detail: ENDOSCOPIST: Chichi Hanley MD Sedation RN: Theresa Nickerson RN Sedation start time: 16:30 Sedation end time: 16:52 PROCEDURE: EGD with biopsy REFERRING PROVIDER: SARA Rasheed INDICATIONS: 1. Esophageal dysmotility 2. Dysphagia 3. Hoarseness MEDICATION: Incremental doses of Versed and fentanyl until an appropriate level of sedation was achieved. ASA Ratin DURATION OF PROCEDURE: 20 minutes. COMPLICATIONS: None. LIMITATIONS: None EXTENT OF PROCEDURE: Third portion of the Duodenum. PROCEDURE: The high-definition gastroduodenoscope was introduced into the posterior oropharynx under direct vision after Hurricaine spray, noted IV sedation, and proper informed consent. The esophagus was identified and intubated under direct visualization. The scope was quickly passed through the esophagus and into the fundus of the stomach. A clear fundal pool was aspirated. The scope was then advanced to the antrum and the pylorus was identified. The scope was passed through the pylorus into the second and third portions of the duodenum. No abnormalities were noted in the duodenum, duodenal bulb or pyloric channel. Random biopsy taken x2. The 2nd biopsy was over a vessel that bled briskly, hemostatic clip placed x2 with excellent hemostasis. Area was observed for over 3 minutes with no further bleeding noted and scope was withdrawn. The antrum had superficial hyperemesis, targeted biopsy taken x2. J maneuver was produced. The proximal body, fundus and cardia had evidence of new ulcers, targeted biopsy taken x2. A moderate hiatal hernia was noted. Scope was broken out of the J maneuver and the remainder of the stomach was carefully inspected upon withdrawal and was normal, random biopsy taken x2. The stomach was carefully deflated of all air on withdrawal. The distal esophagus was carefully inspected and Z-line was noted to be irregular, targeted biopsy taken at 12 o'clock and 3 o'clock. Top of the gastric folds noted at 35 cm from the incisors; circumferential extent of the metaplasia was 32 cm from the incisors; maximal extent of the metaplasia was 31 cm from the incisors. The remainder of the esophagus was normal upon withdrawal, random biopsy taken x2 in the midesophagus. The larynx and vocal cords appeared to be unremarkable. IMPRESSION: 1. Superficial hyperemesis, antrum 2. Acute ulcers, fundus 3. Hiatal hernia, moderate 4. Irregular Z-line with endoscopically suspected esophageal mucosa, C3M4 PLAN: 1. Follow-up in clinic status post pathology results. The possibility of missed lesion including a malignancy was discussed prior with the patient. Potential alarm symptoms have been discussed and should be reported by the patient immediately. Complications: none Post-procedure Recommendations: Will call with biopsy results Follow up: weeks (2) Disposition: PACU
--- NOTE | 2020-03-23 12:36 | P.OP.ENDO_ITS ---
Operative Date/Time/Diagnoses Date of procedure: 03/23/20 Pre-op diagnosis: 1. Screening for colon cancer 2. History of diverticulosis Post-op diagnosis: other (1. Diverticulosis, left-sided, moderate) Procedure & Clinicians Study performed: Colonoscopy Same procedure as scheduled: Yes Indications: 1. Screening for colon cancer 2. History of diverticulosis Surgeon: Chichi Hanley Procedure Notes SCOAP/Timeout: 16:29 Procedure in detail: ENDOSCOPIST: Chichi Hanley MD Sedation RN: Theresa Nickerson RN Sedation start time: 16:59 Sedation end time: 17:16 PROCEDURE: Colonoscopy INDICATIONS: 1. Screening for colon cancer 2. History of diverticulosis MEDICATION: Levsin 0.125 mg sublingual, incremental doses of Versed and fentanyl until appropriate level sedation achieved. ASA CLASS: 2 CECAL WITHDRAWAL TIME: 11 minutes COMPLICATIONS: None. EXTENT OF PROCEDURE: Cecum. QUALITY OF PREP: Good with portions of liquid stool. PROCEDURE: Prior to insertion of the colonoscope, a digital rectal examination was acco mplished with circumferential palpation of the distal rectal mucosa without significant findings being noted. The high-definition colonoscope was passed into the rectum in the usual fashion and advanced over to the cecum without difficulty. The ileocecal valve, appendiceal stoma, and medial wall all could be inspected and no abnormalities were seen. ASCENDING COLON: As the colonoscope was withdrawn, care was taken to expose and inspect the haustral folds and no abnormalities were seen. HEPATIC FLEXURE: Normal, no polyps, diverticula or other abnormalities. TRANSVERSE COLON: Normal, no polyps, diverticula or other abnormalities. DESCENDING COLON: Moderate diverticulosis, otherwise, normal, no polyps, or other abnormalities. SIGMOID COLON: Moderate diverticulosis, otherwise, normal, no polyps, or other abnormalities. RECTUM: Normal. J maneuver was produced. There was no significant perianal disease. The J maneuver was broken. The remainder of the rectum was inspected and there was no external hemorrhoid disease. The scope was withdrawn. IMPRESSION: 1. Normal colonoscopy 2. Moderate diverticulosis, left-sided PLAN: 1. Follow-up in clinic status post pathology results. The possibility of a missed lesion including a malignancy has been discussed with the patient previously. Potential alarm symptoms have been discussed and should be reported immediately. Complications: none Post-procedure Recommendations: Colonscopy in 10 years Follow up: weeks (2) Disposition: PACU
[2020-03-23 15:00] VITALS: BP 146/73; PULSE 76; RESP 20; TEMP 36.6; O2SAT 96; BMI 28.1
[2020-03-23] MEDS: LACTATED RINGERS 1,000 ML 200 ML IV (15:34)
[2020-03-23] MEDS: HYOSCYAMINE 0.125 MG TABLET PO (15:34)
[2020-03-23 16:25] LABS: COVID19 -Nasal RAPID Negative (Negative)
[2020-03-23 17:20] VITALS: BP 122/70; PULSE 69; RESP 18; TEMP 36.7; O2SAT 96
[2020-03-23] MEDS: MIDAZOLAM 5 MG/5 ML VIAL IV (17:20)
[2020-03-23] MEDS: LIDOCAINE 4% SOLN 50 ML 20 ML TOP (17:21)
[2020-03-23] MEDS: fentaNYL 250 MCG/5 ML INJ IV (17:21)
[2020-03-23] MEDS: TETRACAINE/BENZOCAINE/BUTAMBEN (CETACAINE) BOTTLE 1 SPRAY TOP (17:22)
[2020-03-23] MEDS: LIDOCAINE JELLY 2% 5 ML 1 APPLIC TOP (17:22)
[2020-03-23 17:25] VITALS: BP 123/69; PULSE 53; RESP 16; O2SAT 96
[2020-03-23 17:30] VITALS: BP 123/69; PULSE 51; RESP 14; O2SAT 96
[2020-03-23 17:35] VITALS: BP 147/75; PULSE 62; RESP 16; O2SAT 97
[2020-03-23 17:44] VITALS: BP 131/73; PULSE 55; RESP 14; O2SAT 96
== END 2020-03-23 17:58 | disposition home or self-care (01) ==
PROVIDERS: PCP Internal Medicine; Referring Provider Student in an Organized Health Care Education/Training Program; Visit Provider Student in an Organized Health Care Education/Training Program
PROC: 0DJD8ZZ Inspection of Lower Intestinal Tract, Via Natural or Artificial Opening Endoscopic (ICD-10-PCS; CPT 45378; 2020-03-23 16:00)
DX: Z12.11 Encounter for screening for malignant neoplasm of colon (principal); K22.4 Dyskinesia of esophagus; K57.30 Diverticulosis of large intestine without perforation or abscess without bleeding; K25.3 Acute gastric ulcer without hemorrhage or perforation; K44.9 Diaphragmatic hernia without obstruction or gangrene; K29.50 Unspecified chronic gastritis without bleeding; Z11.59 Encounter for screening for other viral diseases
CPT/HCPCS: 43239; G0121; 87635; J2250; J3010

== ENCOUNTER → 2021-05-24 10:52 | Outpatient (CLI) | payer OTHER, SELFPAY ==
--- NOTE | 2021-05-24 | DI.RAD.S_ITS ---
PROCEDURE: XR CHEST 2V INDICATIONS: Wheezing TECHNIQUE: 2 views of the chest were acquired. COMPARISON: [facility], CR, XR CHEST 2V, 07/24/2018, 16:07. FINDINGS: Surgical changes and devices: None. Lungs and pleura: Lungs are clear. No pleural effusions or pneumothorax. Mediastinum: Mediastinal contours are normal. Heart size is normal. Asymmetric elevation of the right hemidiaphragm is unchanged. Bones and chest wall: No suspicious bony abnormalities. Soft tissues appear unremarkable. IMPRESSION: No acute cardiopulmonary process demonstrated radiographically. Dictated by: Joe Marcelino M.D. on 05/26/2021 at 8:21 Approved by: Joe Marcelino M.D. on 05/26/2021 at 8:22
== END ==
PROVIDERS: PCP Internal Medicine; Referring Provider Internal Medicine; Visit Provider Internal Medicine
DX: R06.2 Wheezing (principal); J44.9 Chronic obstructive pulmonary disease, unspecified
CPT/HCPCS: 71046

== ENCOUNTER → 2021-05-26 11:24 | Outpatient (CLI) | payer OTHER, SELFPAY ==
[2021-05-26 12:29] LABS: COVID19 -Nasal RAPID Negative (Negative)
== END ==
PROVIDERS: PCP Internal Medicine; Referring Provider Internal Medicine; Visit Provider Internal Medicine
DX: Z20.822 Contact with and (suspected) exposure to COVID-19 (principal)
CPT/HCPCS: 87635; C9803

== ENCOUNTER → 2021-05-27 06:46 | Outpatient (CLI) | payer OTHER, SELFPAY ==
--- NOTE | 2021-06-01 08:20 | PM.PFT.1 ---
Pulmonary Function Test Referral & Results Date Patient Seen: 05/27/21 Requesting provider: Cj Stover Results: The spirometry demonstrates an FVC of 2.05 L which is 71% of predicted. The FEV1 was measured at 1.74 L which is 80% of predicted. The FEV1/FVC ratio was 85 which is 111% of predicted. Following the administration of bronchodilator there was a 27% improvement in FEF 25-75% Lung volumes show an SVC of 2.32 L which is 84% of predicted. The diffusing capacity was measured at 21.84 which is 95% of predicted. The maximum voluntary ventilation was reduced Interpretation: This study demonstrates perhaps very minimally reduced FEV1 which would suggest possibility of very mild obstructive lung disease although FEV1/FVC ratio was preserved there is also evidence of minimal benefit in small airway flow after bronchodilator as noted above Lung volumes are probably normal Diffusing capacity is normal There is very mild reduction in maximum voluntary ventilation as well which in the absence of any true abnormalities of spirometry, might suggest the presence of neuromuscular disease Compared to PFTs performed in December 2017, current study is essentially unchanged
== END ==
PROVIDERS: PCP Internal Medicine; Referring Provider Internal Medicine; Visit Provider Internal Medicine
DX: R06.2 Wheezing (principal); J98.4 Other disorders of lung; J98.8 Other specified respiratory disorders; Z87.891 Personal history of nicotine dependence
CPT/HCPCS: 94060; 94726; 94729

== ENCOUNTER → 2021-07-08 14:09 | Outpatient (CLI) | payer OTHER, SELFPAY | PROVIDERS: PCP Internal Medicine; Referring Provider Internal Medicine; Visit Provider Internal Medicine | DX: K22.4 Dyskinesia of esophagus (principal); R06.02 Shortness of breath; R13.10 Dysphagia, unspecified; R94.2 Abnormal results of pulmonary function studies; R53.83 Other fatigue ==

== ENCOUNTER → 2021-07-27 08:00 | Outpatient (CLI) | payer OTHER, SELFPAY ==
[2021-07-27 09:07] LABS: Add Manual Diff / Slide Review NO; Basophils Absolute Auto 100 /uL (0-100); Basophils Percent Auto 1.2 % (0-2); Eosinophils Absolute Auto 200 /uL (0-450); Eosinophils Percent Auto 2.7 % (2-4); Hematocrit 37.5 % (36-46); Hemoglobin 12.7 g/dL (12.0-16.0); Lymphocytes Absolute Auto 1500 /uL (1100-4500); Lymphocytes Percent Auto 25.2 % (25-40); Mean Corpuscular HGB Conc 33.8 % (30-36); Mean Corpuscular Hemoglobin 29.9 PG (26-34); Mean Corpuscular Volume 88.3 fL (80-100); Monocytes Absolute Auto 500 /uL (0-900); Monocytes Percent Auto 8.4 % (3-14); Neutrophils Absolute Auto 3600 /uL (1500-7000); Neutrophils Percent Auto 62.5 % (50-75); Platelet Count 279 X10^3/uL (150-400); Red Blood Cell Count 4.25 X10^6/uL (4.0-5.2); Red Cell Distribution Width 13.2 % (11.6-14.8); White Blood Cell Count 5.8 X10^3/uL (4.5-11.0)
[2021-07-27 09:20] LABS: Alanine Aminotransferase 16 IU/L (<35); Albumin 4.3 g/dL (3.5-5.0); Albumin Globulin Ratio 1.4 (1.0-2.8); Alkaline Phosphatase 82 U/L (38-126); Aspartate Aminotransferase 20 IU/L (14-36); Bilirubin Total 0.6 mg/dL (0.2-1.3); Blood Urea Nitrogen 14 mg/dL (7-17); Calcium 9.7 mg/dL (8.4-10.2); Carbon Dioxide 28 mmol/L (22-32); Chloride 106 mmol/L (98-107); Cholesterol 179 mg/dL (140-199); Estimated Glomerular Filt Rate > 60.0 mL/min (>60); Glucose 99 mg/dL (80-110); HDL Cholesterol 55 mg/dL (40-60); HEMOLYSIS < 15 (0-50); LDL Cholesterol Calculated 109 mg/dL (<100); Sodium 141 mmol/L (137-145); Total Protein 7.3 g/dL (6.3-8.2); Triglycerides 77 mg/dL (35-150)
[2021-07-27 10:04] LABS: TSH w/ Reflex to FT4 1.29 uIU/mL (0.47-4.68)
== END ==
PROVIDERS: PCP Internal Medicine; Referring Provider Internal Medicine; Visit Provider Internal Medicine
DX: Z13.6 Encounter for screening for cardiovascular disorders (principal); Z13.0 Encounter for screening for diseases of the blood and blood-forming organs and certain disorders involving the immune mechanism; E78.5 Hyperlipidemia, unspecified; E03.9 Hypothyroidism, unspecified; E04.1 Nontoxic single thyroid nodule
CPT/HCPCS: 36415; 80053; 80061; 84443; 85025

== ENCOUNTER 2022-07-23 05:57 | Emergency (ER) | payer OTHER, SELFPAY ==
[2022-07-23] VITALS (49 sets, daily range): BP systolic 117–161; BP diastolic 56–70; PULSE 75–101; RESP 20–33; TEMP 37.6; O2SAT 89–96; BMI 27.4
--- NOTE | 2022-07-23 06:12 | DI.RAD.S_ITS ---
PROCEDURE: XR CHEST 1V INDICATIONS: chest pain TECHNIQUE: One view of the chest was acquired. COMPARISON: [facility], CR, XR CHEST 2V, 07/24/2018, 16:07. [facility], CR, XR CHEST 2V, 05/24/2021, 11:14. FINDINGS: Surgical changes and devices: None. Lungs and pleura: An incomplete inspiratory result is noted, causing a crowded appearance to the lung markings. No focal infiltrates are seen. No pneumothorax or significant pleural effusions are seen. Mediastinum: Mediastinal contours appear normal. Heart size is normal. Bones and chest wall: No suspicious bony lesions. Overlying soft tissues appear unremarkable. IMPRESSION: Limited portable chest examination, without a significant cardiopulmonary abnormality identified. Note: No significant discrepancy from the preliminary report. Dictated by: Dami Vincent M.D. on 07/23/2022 at 7:29 Approved by: Dami Vincent M.D. on 07/23/2022 at 7:30
--- NOTE | 2022-07-23 06:19 | ED.CHESTPAIN ---
HPI - Chest Pain <Lisa Swanson DO - Last Filed: 07/24/22 03:56> General Chief Complaint: Chest Pain Stated Complaint: heart burn/not sure Time Seen by Provider: 07/23/22 06:02 History of Present Illness HPI narrative: Patient is a 72-year-old female history of hypothyroidism and GERD presenting today with 3 days of ongoing chest pressure. She says she just got back from [place] there she was experiencing some chest pressure as well. This not necessarily worse with exertion. It does seem to radiate to her left arm. She describes it as a dull ache. She describes it differently than her GERD. She denies any shortness of breath. Minimal nausea no significant abdominal pain. She has no known prior history of coronary artery disease. She admits to being a little bit anxious. She denies any fevers or chills. Patient states she lost both her and her father this year Related Data Home Medications Medication Instructions Recorded Confirmed cetirizine 10 mg capsule (Allergy 10 mg PO PRN PRN Allergic Reaction 06/01/18 03/23/20 Relief (cetirizine)) betamethasone dipropionate 0.05 % 1 applic topical QDAY rash 03/23/20 03/23/20 topical ointment levothyroxine 75 mcg tablet 88 mcg PO QAM 03/23/20 03/23/20 (Synthroid) Previous Rx's Medication Instructions Recorded alendronate 70 mg tablet (Fosamax) 70 mg PO QWEEK #12 tabs 07/24/18 Allergies Allergy/AdvReac Type Severity Reaction Status Date / Time No Known Drug Allergies Allergy Verified 03/20/20 15:51 Review of Systems <DO Lizzie Berg Last Filed: 07/24/22 03:56> Review of Systems Narrative: GENERAL: Denies chills, fatigue, malaise, fever, sweats, travel HEENT: Denies sinus pain, ear pain, sore throat, difficulty swallowing, neck pain RESPIRATORY: Denies dyspnea, cough, wheezing, hemoptysis, sputum. CARDIOVASCULAR: See HPI GASTROINTESTINAL: Denies nausea, vomiting, abdominal pain, diarrhea, constipation, melena. : Denies dysuria, frequency, incontinence, hematuria, urinary retention, flank pain. MUSCULOSKELETAL: Denies weakness, joint pain, or bony pain SKIN: No rash, no erythema, no pruritus NEUROLOGIC: Denies weakness, dizziness, headache, numbness, change in speech, confusion PSYCHIATRIC: No concerning psychosocial issues. 12 point review of systems is negative except for those stated above and HPI Patient History <Lisa Swanson DO - Last Filed: 07/24/22 03:56> Medical History (Updated 07/23/22 @ 08:46 by Belle Ortiz DO) Allergic contact dermatitis (~1979) Chicken pox Chronic back pain (2011) Foot pain (1999) Hayfever (~1979) Hyperthyroidism (2009) Measles Mumps Shoulder pain (2009) Urinary incontinence (~1989) Surgical History Anesthesia Status post dilation and curettage (08/18/15) Status post hysteroscopy (08/18/15) Family History Brother Age: 64 Gout Kidney stone Nonalcoholic fatty liver disease Father Age: 94 Hypertension High cholesterol Kidney stone Mother Cancer Hypertension Stroke Brother No problems noted. Sister No problems noted. Social History household members: spouse Smoking Status: Former smoker alcohol intake: current Smoking Status: Former smoker alcohol intake frequency: a few times a week Substance Use Type: does not use Exam <Lisa Swanson DO - Last Filed: 07/24/22 03:56> Initial Vital Signs Initial Vital Signs: Vital Signs Temperature 99.7 F H 07/23/22 06:10 Pulse Rate 101 H 07/23/22 06:10 Respiratory Rate 24 07/23/22 06:10 Blood Pressure 161/70 H 07/23/22 06:10 Pulse Oximetry 94 07/23/22 06:10 Oxygen Delivery Method 07/23/22 06:10 GENERAL: Alert 72-year-old female mildly anxious and in no acute distress. HEENT: Head atraumatic,EOMI, pupils reactive, face symmetric, moist mucous membranes CARDIOVASCULAR: Regular rate and rhythm without murmurs, rubs or gallops. RESPIRATORY: Breath sounds equal bilaterally, no wheezes rales or rhonchi. ABDOMEN: Soft, nontender. Normoactive bowel sounds all 4 quadrants. No guarding or rebound. EXTREMITIES: Normal range of motion, no clubbing or edema. Neurovascularly intact NEUROLOGICAL: Alert and oriented x4. SKIN: Warm, dry, no laceration, no petechiae, no rashes or lesions. <Belle Ortiz DO - Last Filed: 07/25/22 11:30> Initial Vital Signs Initial Vital Signs: Vital Signs Temperature 99.7 F H 07/23/22 06:10 Pulse Rate 101 H 07/23/22 06:10 Respiratory Rate 24 07/23/22 06:10 Blood Pressure 161/70 H 07/23/22 06:10 Pulse Oximetry 94 07/23/22 06:10 Oxygen Delivery Method 07/23/22 06:10 Course <Lisa Swanson DO - Last Filed: 07/24/22 03:56> Orders Ordered: Discontinued Medications Aspirin (Aspirin 81 Mg Chew Tab) 324 mg PO NOW ONE Stop: 07/23/22 06:13 Last Admin: 07/23/22 06:35 Dose: 324 mg Documented By: ABDIRIZAK Sodium Chloride (Normal Saline 0.9%) 1,000 mls @ 150 mls/hr IV CONT PATSY Last Infusion: 07/23/22 10:05 Dose: 0 mls/hr Documented By: Admin: 07/23/22 06:35 Dose: 150 mls/hr Documented By: ABDIRIZAK Nitroglycerin (Nitroglycerin 0.4 Mg Sl Tab) 0.4 mg SL [id number] PRN PRN Reason: Chest Pain Last Admin: 07/23/22 06:42 Dose: 0.4 mg Documented By: Admin: 07/23/22 06:37 Dose: 0.4 mg Documented By: ABDIRIZAK Pantoprazole Sodium (Pantoprazole 40 Mg Vial) 40 mg IV NOW ONE Stop: 07/23/22 06:14 Last Admin: 07/23/22 06:35 Dose: 40 mg Documented By: ABDIRIZAK Vital Signs Vital signs: Vital Signs - 8 hr 07/23/22 06:10 07/23/22 06:37 07/23/22 06:42 Temperature 99.7 F H Pulse Rate 101 H 90 97 H Respiratory Rate 24 Blood Pressure 161/70 H 135/63 130/63 Pulse Oximetry 94 Oxygen Delivery Method Room Air 07/23/22 06:15 07/23/22 06:20 07/23/22 06:25 Temperature Pulse Rate 93 H 96 H 91 H Respiratory Rate 31 H 33 H 28 H Blood Pressure Pulse Oximetry 93 94 93 Oxygen Delivery Method 07/23/22 06:30 07/23/22 06:30 07/23/22 06:35 Temperature Pulse Rate 85 87 Respiratory Rate 28 H 27 H Blood Pressure 135/63 Pulse Oximetry 93 93 Oxygen Delivery Method 07/23/22 06:40 07/23/22 06:40 07/23/22 06:45 Temperature Pulse Rate 94 H Respiratory Rate 28 H Blood Pressure 130/63 129/61 Pulse Oximetry 93 Oxygen Delivery Method 07/23/22 06:45 07/23/22 06:50 07/23/22 06:55 Temperature Pulse Rate 94 H 91 H 83 Respiratory Rate 29 H 26 H 27 H Blood Pressure Pulse Oximetry 90 L 90 L 89 L Oxygen Delivery Method 07/23/22 07:00 07/23/22 07:00 07/23/22 07:05 Temperature Pulse Rate 81 80 Respiratory Rate 27 H 26 H Blood Pressure 124/61 Pulse Oximetry 90 L 90 L Oxygen Delivery Method 07/23/22 07:10 07/23/22 07:15 07/23/22 07:20 Temperature Pulse Rate 77 76 75 Respiratory Rate 26 H 25 H 24 Blood Pressure Pulse Oximetry 90 L 91 91 Oxygen Delivery Method 07/23/22 07:25 07/23/22 07:30 07/23/22 07:35 Temperature Pulse Rate 78 101 H 89 Respiratory Rate 24 32 H 31 H Blood Pressure Pulse Oximetry 90 L 91 93 Oxygen Delivery Method 07/23/22 07:40 07/23/22 07:45 07/23/22 07:50 Temperature Pulse Rate 92 H 91 H 89 Respiratory Rate 25 H 30 H 30 H Blood Pressure Pulse Oximetry 95 94 94 Oxygen Delivery Method 07/23/22 07:55 07/23/22 08:00 07/23/22 08:00 Temperature Pulse Rate 88 85 Respiratory Rate 32 H 26 H Blood Pressure 136/63 Pulse Oximetry 94 94 Oxygen Delivery Method 07/23/22 08:05 07/23/22 08:10 07/23/22 08:15 Temperature Pulse Rate 84 80 80 Respiratory Rate 27 H 26 H 26 H Blood Pressure Pulse Oximetry 94 94 94 Oxygen Delivery Method 07/23/22 08:20 07/23/22 08:25 07/23/22 08:30 Temperature Pulse Rate 80 79 Respiratory Rate 25 H 26 H Blood Pressure 126/59 L Pulse Oximetry 94 94 Oxygen Delivery Method 07/23/22 08:30 07/23/22 08:35 07/23/22 08:40 Temperature Pulse Rate 79 86 85 Respiratory Rate 27 H 24 20 Blood Pressure Pulse Oximetry 93 95 95 Oxygen Delivery Method 07/23/22 08:45 07/23/22 08:50 07/23/22 08:55 Temperature Pulse Rate 98 H 82 80 Respiratory Rate 28 H 26 H 25 H Blood Pressure Pulse Oximetry 94 94 94 Oxygen Delivery Method 07/23/22 09:00 07/23/22 09:00 07/23/22 09:05 Temperature Pulse Rate 80 80 Respiratory Rate 23 28 H Blood Pressure 127/61 Pulse Oximetry 96 94 Oxygen Delivery Method 07/23/22 09:10 07/23/22 09:15 07/23/22 09:20 Temperature Pulse Rate 79 79 83 Respiratory Rate 25 H 25 H 29 H Blood Pressure Pulse Oximetry 94 94 94 Oxygen Delivery Method 07/23/22 09:25 07/23/22 09:30 07/23/22 09:30 Temperature Pulse Rate 78 83 Respiratory Rate 27 H 30 H Blood Pressure 131/60 Pulse Oximetry 94 94 Oxygen Delivery Method 07/23/22 09:35 07/23/22 09:40 07/23/22 09:45 Temperature Pulse Rate 79 79 76 Respiratory Rate 25 H 26 H 27 H Blood Pressure Pulse Oximetry 94 94 94 Oxygen Delivery Method 07/23/22 09:50 07/23/22 09:55 07/23/22 10:00 Temperature Pulse Rate 76 77 Respiratory Rate 26 H 21 Blood Pressure 117/56 L Pulse Oximetry 94 93 Oxygen Delivery Method Room Air 07/23/22 10:00 Temperature Pulse Rate 77 Respiratory Rate 23 Blood Pressure Pulse Oximetry 94 Oxygen Delivery Method <Belle Ortiz, - Last Filed: 07/25/22 11:30> Orders Ordered: Discontinued Medications Aspirin (Aspirin 81 Mg Chew Tab) 324 mg PO NOW ONE Stop: 07/23/22 06:13 Last Admin: 07/23/22 06:35 Dose: 324 mg Documented By: ABDIRIZAK Sodium Chloride (Normal Saline 0.9%) 1,000 mls @ 150 mls/hr IV CONT PATSY Last Infusion: 07/23/22 10:05 Dose: 0 mls/hr Documented By: Admin: 07/23/22 06:35 Dose: 150 mls/hr Documented By: ABDIRIZAK Nitroglycerin (Nitroglycerin 0.4 Mg Sl Tab) 0.4 mg SL [id number] PRN PRN Reason: Chest Pain Last Admin: 07/23/22 06:42 Dose: 0.4 mg Documented By: Admin: 07/23/22 06:37 Dose: 0.4 mg Documented By: ABDIRIZAK Pantoprazole Sodium (Pantoprazole 40 Mg Vial) 40 mg IV NOW ONE Stop: 07/23/22 06:14 Last Admin: 07/23/22 06:35 Dose: 40 mg Documented By: ABDIRIZAK Vital Signs Vital signs: Vital Signs - 8 hr 07/23/22 06:10 07/23/22 06:37 07/23/22 06:42 Temperature 99.7 F H Pulse Rate 101 H 90 97 H Respiratory Rate 24 Blood Pressure 161/70 H 135/63 130/63 Pulse Oximetry 94 Oxygen Delivery Method Room Air 07/23/22 06:15 07/23/22 06:20 07/23/22 06:25 Temperature Pulse Rate 93 H 96 H 91 H Respiratory Rate 31 H 33 H 28 H Blood Pressure Pulse Oximetry 93 94 93 Oxygen Delivery Method 07/23/22 06:30 07/23/22 06:30 07/23/22 06:35 Temperature Pulse Rate 85 87 Respiratory Rate 28 H 27 H Blood Pressure 135/63 Pulse Oximetry 93 93 Oxygen Delivery Method 07/23/22 06:40 07/23/22 06:40 07/23/22 06:45 Temperature Pulse Rate 94 H Respiratory Rate 28 H Blood Pressure 130/63 129/61 Pulse Oximetry 93 Oxygen Delivery Method 07/23/22 06:45 07/23/22 06:50 07/23/22 06:55 Temperature Pulse Rate 94 H 91 H 83 Respiratory Rate 29 H 26 H 27 H Blood Pressure Pulse Oximetry 90 L 90 L 89 L Oxygen Delivery Method 07/23/22 07:00 07/23/22 07:00 07/23/22 07:05 Temperature Pulse Rate 81 80 Respiratory Rate 27 H 26 H Blood Pressure 124/61 Pulse Oximetry 90 L 90 L Oxygen Delivery Method 07/23/22 07:10 07/23/22 07:15 07/23/22 07:20 Temperature Pulse Rate 77 76 75 Respiratory Rate 26 H 25 H 24 Blood Pressure Pulse Oximetry 90 L 91 91 Oxygen Delivery Method 07/23/22 07:25 07/23/22 07:30 07/23/22 07:35 Temperature Pulse Rate 78 101 H 89 Respiratory Rate 24 32 H 31 H Blood Pressure Pulse Oximetry 90 L 91 93 Oxygen Delivery Method 07/23/22 07:40 07/23/22 07:45 07/23/22 07:50 Temperature Pulse Rate 92 H 91 H 89 Respiratory Rate 25 H 30 H 30 H Blood Pressure Pulse Oximetry 95 94 94 Oxygen Delivery Method 07/23/22 07:55 07/23/22 08:00 07/23/22 08:00 Temperature Pulse Rate 88 85 Respiratory Rate 32 H 26 H Blood Pressure 136/63 Pulse Oximetry 94 94 Oxygen Delivery Method 07/23/22 08:05 07/23/22 08:10 07/23/22 08:15 Temperature Pulse Rate 84 80 80 Respiratory Rate 27 H 26 H 26 H Blood Pressure Pulse Oximetry 94 94 94 Oxygen Delivery Method 07/23/22 08:20 07/23/22 08:25 07/23/22 08:30 Temperature Pulse Rate 80 79 Respiratory Rate 25 H 26 H Blood Pressure 126/59 L Pulse Oximetry 94 94 Oxygen Delivery Method 07/23/22 08:30 07/23/22 08:35 07/23/22 08:40 Temperature Pulse Rate 79 86 85 Respiratory Rate 27 H 24 20 Blood Pressure Pulse Oximetry 93 95 95 Oxygen Delivery Method 07/23/22 08:45 07/23/22 08:50 07/23/22 08:55 Temperature Pulse Rate 98 H 82 80 Respiratory Rate 28 H 26 H 25 H Blood Pressure Pulse Oximetry 94 94 94 Oxygen Delivery Method 07/23/22 09:00 07/23/22 09:00 07/23/22 09:05 Temperature Pulse Rate 80 80 Respiratory Rate 23 28 H Blood Pressure 127/61 Pulse Oximetry 96 94 Oxygen Delivery Method 07/23/22 09:10 07/23/22 09:15 07/23/22 09:20 Temperature Pulse Rate 79 79 83 Respiratory Rate 25 H 25 H 29 H Blood Pressure Pulse Oximetry 94 94 94 Oxygen Delivery Method 07/23/22 09:25 07/23/22 09:30 07/23/22 09:30 Temperature Pulse Rate 78 83 Respiratory Rate 27 H 30 H Blood Pressure 131/60 Pulse Oximetry 94 94 Oxygen Delivery Method 07/23/22 09:35 07/23/22 09:40 07/23/22 09:45 Temperature Pulse Rate 79 79 76 Respiratory Rate 25 H 26 H 27 H Blood Pressure Pulse Oximetry 94 94 94 Oxygen Delivery Method 07/23/22 09:50 07/23/22 09:55 07/23/22 10:00 Temperature Pulse Rate 76 77 Respiratory Rate 26 H 21 Blood Pressure 117/56 L Pulse Oximetry 94 93 Oxygen Delivery Method Room Air 07/23/22 10:00 Temperature Pulse Rate 77 Respiratory Rate 23 Blood Pressure Pulse Oximetry 94 Oxygen Delivery Method MDM - Chest Pain <Lisa Swanson, DO - Last Filed: 07/24/22 03:56> Lab Data Result diagrams: 07/23/22 06:15 07/23/22 06:15 Labs: Lab Results 07/23/22 07/23/22 07/23/22 Range/Units 06:09 06:15 06:15 WBC 13.1 H (4.5-11.0) X10^3/uL RBC 4.12 (4.0-5.2) X10^6/uL Hgb 11.9 L (12.0-16.0) g/dL Hct 36.2 (36-46) % MCV 87.8 (80-100) fL MCH 29.0 (26-34) PG MCHC 33.0 (30-36) % RDW 13.5 (11.6-14.8) % Plt Count 266 (150-400) X10^3/uL Neut % (Auto) 85.4 H (50-75) % Lymph % (Auto) 5.6 L (25-40) % [place] % (Auto) 8.4 (3-14) % Eos % (Auto) 0.4 L (2-4) % Baso % (Auto) 0.2 (0-2) % Neut # (Auto) 61154 H (0517-9988) /uL Lymph # (Auto) 700 L (0407-7390) /uL [place] # (Auto) 1100 H (0-900) /uL Eos # (Auto) 100 (0-450) /uL Baso # (Auto) 0 (0-100) /uL PT 14.5 H (10.1-12.7) SECONDS INR 1.3 (0.9-1.3) APTT 30 (26-36) SECONDS D-Dimer 430 (<500) ng/ml Sodium (137-145) mmol/L Potassium (3.4-5.1) mmol/L Chloride (98-107) mmol/L Carbon Dioxide (22-32) mmol/L BUN (7-17) mg/dL Creatinine (0.52-1.04) mg/dL Estimated GFR (>60) mL/min BUN/Creatinine Ratio (6-22) Glucose (80-110) mg/dL Calcium (8.4-10.2) mg/dL Total Bilirubin (0.2-1.3) mg/dL AST (14-36) IU/L ALT (<35) IU/L Alkaline Phosphatase (38-126) U/L Total Creatine Kinase (30-135) U/L CK-MB (CK-2) (<2.37) ng/mL CK-MB (CK-2) Rel Index (1.5-5.0) % Troponin I (0.01-0.034) ng/mL Total Protein (6.3-8.2) g/dL Albumin (3.5-5.0) g/dL Globulin (1.7-4.1) g/dL Albumin/Globulin Ratio (1.0-2.8) Lipase (23-300) U/L SARS-CoV-2 (PCR) Positive H (Negative) Influenza A (RT-PCR) Flu a negative (NEGATIVE) Influenza B (RT-PCR) Flu b negative (NEGATIVE) RSV (PCR) Negative (Negative) 07/23/22 07/23/22 Range/Units 06:15 09:28 WBC (4.5-11.0) X10^3/uL RBC (4.0-5.2) X10^6/uL Hgb (12.0-16.0) g/dL Hct (36-46) % MCV (80-100) fL MCH (26-34) PG MCHC (30-36) % RDW (11.6-14.8) % Plt Count (150-400) X10^3/uL Neut % (Auto) (50-75) % Lymph % (Auto) (25-40) % [place] % (Auto) (3-14) % Eos % (Auto) (2-4) % Baso % (Auto) (0-2) % Neut # (Auto) (4840-5319) /uL Lymph # (Auto) (2741-7532) /uL [place] # (Auto) (0-900) /uL Eos # (Auto) (0-450) /uL Baso # (Auto) (0-100) /uL PT (10.1-12.7) SECONDS INR (0.9-1.3) APTT (26-36) SECONDS D-Dimer (<500) ng/ml Sodium 137 (137-145) mmol/L Potassium 3.7 (3.4-5.1) mmol/L Chloride 104 (98-107) mmol/L Carbon Dioxide 24 (22-32) mmol/L BUN 11 (7-17) mg/dL Creatinine 0.50 L (0.52-1.04) mg/dL Estimated GFR > 60 (>60) mL/min BUN/Creatinine Ratio 22.0 (6-22) Glucose 119 H (80-110) mg/dL Calcium 9.1 (8.4-10.2) mg/dL Total Bilirubin 0.7 (0.2-1.3) mg/dL AST 25 (14-36) IU/L ALT 24 (<35) IU/L Alkaline Phosphatase 93 (38-126) U/L Total Creatine Kinase 229 H (30-135) U/L CK-MB (CK-2) 1.69 (<2.37) ng/mL CK-MB (CK-2) Rel Index 0.7 L (1.5-5.0) % Troponin I < 0.012 < 0.012 (0.01-0.034) ng/mL Total Protein 7.2 (6.3-8.2) g/dL Albumin 4.1 (3.5-5.0) g/dL Globulin 3.1 (1.7-4.1) g/dL Albumin/Globulin Ratio 1.3 (1.0-2.8) Lipase 30 (23-300) U/L SARS-CoV-2 (PCR) (Negative) Influenza A (RT-PCR) (NEGATIVE) Influenza B (RT-PCR) (NEGATIVE) RSV (PCR) (Negative) ECG Data Interpretation: Normal sinus rhythm rate 99 AZ interval 166 QRS 58 QTC 436, ST elevation in lateral leads with Q-waves no ST depression no T-wave inversions no priors to compare MDM Narrative Medical decision making narrative: Patient presents with chest pain ongoing for the last 3 days different from [place]. Woke her from her sleep not going away. Radiating down left arm concern for acute coronary syndrome. EKG does not show any acute changes initial troponin is negative. Patient signed out to Dr. Ortiz for for further evaluation disposition 07/23/22 Angel: This is a 72-year-old female signed out to myself with chest discomfort substernal for the past 3 days after traveling to [place] and going [place]. Patient states she is had heart rate in the past but feels different. EKG does not show acute changes, initial troponin is negative, repeat troponin is negative nd patient's other lab workup is normal she is COVID positive. She has a negative D-dimer. Suspect patient's chest discomfort is from her COVID infection, chest x-ray is negative today she is not been hypoxic. Will await 2nd troponin and if negative will discharge home discussed Josue carroll briefly but patient defers. <Belle Ortiz, DO - Last Filed: 07/25/22 11:30> Lab Data Labs: Lab Results 07/23/22 07/23/22 07/23/22 Range/Units 06:09 06:15 06:15 WBC 13.1 H (4.5-11.0) X10^3/uL RBC 4.12 (4.0-5.2) X10^6/uL Hgb 11.9 L (12.0-16.0) g/dL Hct 36.2 (36-46) % MCV 87.8 (80-100) fL MCH 29.0 (26-34) PG MCHC 33.0 (30-36) % RDW 13.5 (11.6-14.8) % Plt Count 266 (150-400) X10^3/uL Neut % (Auto) 85.4 H (50-75) % Lymph % (Auto) 5.6 L (25-40) % [place] % (Auto) 8.4 (3-14) % Eos % (Auto) 0.4 L (2-4) % Baso % (Auto) 0.2 (0-2) % Neut # (Auto) 61366 H (6834-4674) /uL Lymph # (Auto) 700 L (3339-5878) /uL [place] # (Auto) 1100 H (0-900) /uL Eos # (Auto) 100 (0-450) /uL Baso # (Auto) 0 (0-100) /uL PT 14.5 H (10.1-12.7) SECONDS INR 1.3 (0.9-1.3) APTT 30 (26-36) SECONDS D-Dimer 430 (<500) ng/ml Sodium (137-145) mmol/L Potassium (3.4-5.1) mmol/L Chloride (98-107) mmol/L Carbon Dioxide (22-32) mmol/L BUN (7-17) mg/dL Creatinine (0.52-1.04) mg/dL Estimated GFR (>60) mL/min BUN/Creatinine Ratio (6-22) Glucose (80-110) mg/dL Calcium (8.4-10.2) mg/dL Total Bilirubin (0.2-1.3) mg/dL AST (14-36) IU/L ALT (<35) IU/L Alkaline Phosphatase (38-126) U/L Total Creatine Kinase (30-135) U/L CK-MB (CK-2) (<2.37) ng/mL CK-MB (CK-2) Rel Index (1.5-5.0) % Troponin I (0.01-0.034) ng/mL Total Protein (6.3-8.2) g/dL Albumin (3.5-5.0) g/dL Globulin (1.7-4.1) g/dL Albumin/Globulin Ratio (1.0-2.8) Lipase (23-300) U/L SARS-CoV-2 (PCR) Positive H (Negative) Influenza A (RT-PCR) Flu a negative (NEGATIVE) Influenza B (RT-PCR) Flu b negative (NEGATIVE) RSV (PCR) Negative (Negative) 07/23/22 07/23/22 Range/Units 06:15 09:28 WBC (4.5-11.0) X10^3/uL RBC (4.0-5.2) X10^6/uL Hgb (12.0-16.0) g/dL Hct (36-46) % MCV (80-100) fL MCH (26-34) PG MCHC (30-36) % RDW (11.6-14.8) % Plt Count (150-400) X10^3/uL Neut % (Auto) (50-75) % Lymph % (Auto) (25-40) % [place] % (Auto) (3-14) % Eos % (Auto) (2-4) % Baso % (Auto) (0-2) % Neut # (Auto) (0452-5560) /uL Lymph # (Auto) (5759-3291) /uL [place] # (Auto) (0-900) /uL Eos # (Auto) (0-450) /uL Baso # (Auto) (0-100) /uL PT (10.1-12.7) SECONDS INR (0.9-1.3) APTT (26-36) SECONDS D-Dimer (<500) ng/ml Sodium 137 (137-145) mmol/L Potassium 3.7 (3.4-5.1) mmol/L Chloride 104 (98-107) mmol/L Carbon Dioxide 24 (22-32) mmol/L BUN 11 (7-17) mg/dL Creatinine 0.50 L (0.52-1.04) mg/dL Estimated GFR > 60 (>60) mL/min BUN/Creatinine Ratio 22.0 (6-22) Glucose 119 H (80-110) mg/dL Calcium 9.1 (8.4-10.2) mg/dL Total Bilirubin 0.7 (0.2-1.3) mg/dL AST 25 (14-36) IU/L ALT 24 (<35) IU/L Alkaline Phosphatase 93 (38-126) U/L Total Creatine Kinase 229 H (30-135) U/L CK-MB (CK-2) 1.69 (<2.37) ng/mL CK-MB (CK-2) Rel Index 0.7 L (1.5-5.0) % Troponin I < 0.012 < 0.012 (0.01-0.034) ng/mL Total Protein 7.2 (6.3-8.2) g/dL Albumin 4.1 (3.5-5.0) g/dL Globulin 3.1 (1.7-4.1) g/dL Albumin/Globulin Ratio 1.3 (1.0-2.8) Lipase 30 (23-300) U/L SARS-CoV-2 (PCR) (Negative) Influenza A (RT-PCR) (NEGATIVE) Influenza B (RT-PCR) (NEGATIVE) RSV (PCR) (Negative) Imaging Data Chest x-ray: Radiologist's Impression: Close Chest X-Ray (Signed) Dami Vincent - 07/23/22 PFT Result 05/27/21 Chest X-Ray (Signed) Joe Marcelino - 05/24/21 Telemetry Strips 03/23/20 Upper GI Series (Signed) LeoDino - 10/30/19 Thyroid Ultrasound (Signed) Yifan Polanco - 08/08/19 Bone Densitometry 08/08/19 Chest X-Ray (Signed) Yifan Polanco - 07/24/[address] (Signed) Tomasz Verma - 06/21/18 EKG Rpt. 06/01/18 Mammogram Result 05/16/18 PFT Result 12/19/17 Launch?[place] [address] XRay Report Signed Patient: Ksenia Godfrey MR#: [id number] : 1950 Acct:[id number] Age/Sex: 72 / F Date of Service: 07/23/22 Loc: Accession Number: [id number] ?? Procedure: XR chest 1V Ordering Provider: Lisa Swanson D.O. PROCEDURE:? XR CHEST 1V ? INDICATIONS:? chest pain ? TECHNIQUE:? One view of the chest was acquired.? ? COMPARISON:? [facility], , XR CHEST 2V, 07/24/2018, 16:07.? [facility], , XR CHEST 2V, 05/24/2021, 11:14. ? FINDINGS:? ? Surgical changes and devices:? None.? ? Lungs and pleura:? An incomplete inspiratory result is noted, causing a crowded appearance to the lung markings.? No focal infiltrates are seen.? No pneumothorax or significant pleural effusions are seen. ? ? Mediastinum:? Mediastinal contours appear normal.? Heart size is normal.? ? Bones and chest wall:? No suspicious bony lesions.? Overlying soft tissues appear unremarkable.? IMPRESSION:? ? Limited portable chest examination, without a significant cardiopulmonary abnormality identified.? ? ? Note: No significant discrepancy from the preliminary report. ? ? Dictated by: Dami Vincent M.D. on 07/23/2022 at 7:29 ? ? Approved by: Dami Vincent M.D. on 07/23/2022 at 7:30?? ECG Data Interpretation: Normal sinus rhythm rate 99 AZ interval 166 QRS 58 QTC 436, ST elevation in lateral leads with Q-waves no ST depression no T-wave inversions no priors to compare EKG 2. Sinus rhythm, rate of 90 6p are 162 QRS 82 and QTC 447. No acute ST changes appreciated MDM Narrative Medical decision making narrative: Patient presents with chest pain ongoing for the last 3 days different from [place]. Woke her from her sleep not going away. Radiating down left arm concern for acute coronary syndrome. EKG does not show any acute changes initial troponin is negative. Patient signed out to Dr. Ortiz for for further evaluation disposition 07/23/22 Angel: This is a 72-year-old female signed out to myself with chest discomfort substernal for the past 3 days after traveling to [place] and going [place]. Patient states she is had heart rate in the past but feels different. EKG does not show acute changes, initial troponin is negative, repeat troponin is negative nd patient's other lab workup is normal she is COVID positive. She has a negative D-dimer. Suspect patient's chest discomfort is from her COVID infection, chest x-ray is negative today she is not been hypoxic. Will await 2nd troponin and if negative will discharge home discussed Josue carroll briefly but patient defers. Discharge Plan Departure Patient Disposition: Home Clinical Impression: COVID-19 virus infection Instructions: DI for COVID-19 (Suspected or Confirmed ) Activity Restrictions/Additional Instructions: *You have been diagnosed with COVID infection If you wish you may obtain a pulse oximeter for use at home to monitor. Please return to the ER if your pulse oximeter shows an O2 saturation less than 90%. *What to do: * per recommendations from the CDC and the [facility] Department of Health * stay home except to get medical care. Restrict activities outside your home, except for getting medical care. Do not go to work, school, or public areas. Avoid using public transportation, ride sharing, or taxis. * separate yourself from other people in your home. * call ahead before visiting your doctor * Wear a face mask * Cover your coughs and sneezes * Clean your hands often * Avoid sharing household items * Clean all high-touch services every day * Monitor your symptoms and seek prompt medical attention if your illness is worsening, particularly with difficulty in breathing. Discussed continuing home isolation * for individuals with symptoms who are confirmed or suspected cases of COVID-19 and are directed to care for themselves at home, discontinue home isolation under the following conditions: 1. At least 72 hours have passed since recovery, defined as resolution of fever without the use of fever reducing medications, and improvement in respiratory symptoms (cough, shortness of breath) AND, 2. At least 7 days have passed since symptoms 1st appeared Individuals with laboratory confirmed COVID-19 who have not had any symptoms may discontinue home isolation when at least 7 days have passed since the date of their 1st COVID-19 diagnostic test and have had no subsequent illness Prescriptions: No Action cetirizine [Allergy Relief (cetirizine)] 10 mg capsule 10 mg PO PRN PRN (Reason: Allergic Reaction) alendronate [Fosamax] 70 mg tablet 70 mg PO QWEEK Qty: 12 3RF levothyroxine [Synthroid] 75 mcg tablet 88 mcg PO QAM betamethasone dipropionate 0.05 % ointment 1 applic Topical QDAY Referrals: Reba Stover ARNP [Primary Care Provider] - Visit Report Forms: Patient Portal/API
[2022-07-23 06:31] LABS: Add Manual Diff / Slide Review NO; Basophils Absolute Auto 0 /uL (0-100); Basophils Percent Auto 0.2 % (0-2); Eosinophils Absolute Auto 100 /uL (0-450); Eosinophils Percent Auto 0.4 % (2-4); Hematocrit 36.2 % (36-46); Hemoglobin 11.9 g/dL (12.0-16.0); Lymphocytes Absolute Auto 700 /uL (1100-4500); Lymphocytes Percent Auto 5.6 % (25-40); Mean Corpuscular Volume 87.8 fL (80-100); Monocytes Absolute Auto 1100 /uL (0-900); Monocytes Percent Auto 8.4 % (3-14); Neutrophils Absolute Auto 11200 /uL (1500-7000); Neutrophils Percent Auto 85.4 % (50-75); Platelet Count 266 X10^3/uL (150-400); Red Blood Cell Count 4.12 X10^6/uL (4.0-5.2); Red Cell Distribution Width 13.5 % (11.6-14.8); White Blood Cell Count 13.1 X10^3/uL (4.5-11.0)
[2022-07-23] MEDS: SODIUM CHLORIDE 0.9% 1,000 ML 150 ML IV (06:35)
[2022-07-23] MEDS: ASPIRIN 81 MG CHEW TAB 324 MG PO (06:35)
[2022-07-23] MEDS: PANTOPRAZOLE 40 MG VIAL IV (06:35)
[2022-07-23 06:36] LABS: INR 1.3 (0.9-1.3); Prothrombin Time 14.5 SECONDS (10.1-12.7)
[2022-07-23] MEDS: NITROGLYCERIN 0.4 MG SL TAB SL ×2 (06:37→06:42)
[2022-07-23 06:38] LABS: Alanine Aminotransferase 24 IU/L (<35); Albumin 4.1 g/dL (3.5-5.0); Albumin Globulin Ratio 1.3 (1.0-2.8); Alkaline Phosphatase 93 U/L (38-126); Aspartate Aminotransferase 25 IU/L (14-36); Bilirubin Total 0.7 mg/dL (0.2-1.3); Blood Urea Nitrogen 11 mg/dL (7-17); Calcium 9.1 mg/dL (8.4-10.2); Carbon Dioxide 24 mmol/L (22-32); Chloride 104 mmol/L (98-107); Creatine Kinase 229 U/L (30-135); D Dimer 430 ng/ml (<500); Estimated Glomerular Filt Rate > 60 mL/min (>60); Globulin 3.1 g/dL (1.7-4.1); Glucose 119 mg/dL (80-110); HEMOLYSIS < 15 (0-50); Lipase 30 U/L (23-300); Potassium 3.7 mmol/L (3.4-5.1); Sodium 137 mmol/L (137-145); Total Protein 7.2 g/dL (6.3-8.2)
[2022-07-23 06:39] LABS: PTT Partial Thromboplastin Tim 30 SECONDS (26-36)
[2022-07-23 06:50] LABS: Troponin I < 0.012 ng/mL (0.01-0.034)
[2022-07-23 06:53] LABS: CKMB % Relative Index 0.7 % (1.5-5.0); Creatine Kinase MB 1.69 ng/mL (<2.37)
[2022-07-23 07:32] LABS: Influenza A - CEPHEID Flu A NEGATIVE (NEGATIVE); Influenza B - CEPHEID Flu B NEGATIVE (NEGATIVE); Respiratory Syncytial Virus Negative (Negative)
[2022-07-23 07:36] LABS: COVID-19 CEPHEID 4-PLEX PCR POSITIVE (Negative)
[2022-07-23 10:01] LABS: Troponin I < 0.012 ng/mL (0.01-0.034)
== END 2022-07-23 10:18 | disposition home or self-care (01) ==
PROVIDERS: Emergency Medicine; Emergency Provider Emergency Medicine; PCP Internal Medicine
DX: U07.1 COVID-19 (principal); R07.9 Chest pain, unspecified; F41.9 Anxiety disorder, unspecified
CPT/HCPCS: 0241U; 36415; 71045; 80053; 82550; 82553; 83690; 84484; 85025; 85379; 85610; 85730; 93005; 96361; 96374; 99284; C9113

== ENCOUNTER → 2022-09-07 15:11 | Outpatient (CLI) | payer OTHER, SELFPAY | PROVIDERS: PCP Internal Medicine; Referring Provider Internal Medicine; Visit Provider Internal Medicine | DX: Z78.0 Asymptomatic menopausal state (principal); M81.0 Age-related osteoporosis without current pathological fracture | CPT/HCPCS: 77080 ==

== ENCOUNTER → 2022-10-11 07:46 | Outpatient (CLI) | payer OTHER, SELFPAY ==
--- NOTE | 2022-10-11 07:47 | DI.RAD.S_ITS ---
PROCEDURE: XR ANKLE RT MIN 3V INDICATIONS: Right foot injury TECHNIQUE: 3 views of the ankle were acquired. COMPARISON: None. FINDINGS: Bones: Cortical irregularity involving tip of lateral malleolus suggestive of age indeterminate avulsion injury. No other fracture or dislocation.. Ankle mortise is normally aligned. No suspicious bony lesions. Soft tissues: Mild lateral ankle soft tissue swelling is seen. No tibiotalar joint effusion. Achilles tendon appears normal. IMPRESSION: Age indeterminate avulsion injury involving tip of lateral malleolus with mild lateral ankle soft tissue swelling. No other fracture or dislocation. Ankle mortise is congruent. Dictated by: Yifan Polanco M.D. on 10/11/2022 at 8:17 Approved by: Yifan Polanco M.D. on 10/11/2022 at 8:18
--- NOTE | 2022-10-11 07:47 | DI.RAD.S_ITS ---
PROCEDURE: XR FOOT RT MIN 3V INDICATIONS: Right foot injury TECHNIQUE: 3 views of the foot were acquired. COMPARISON: None. FINDINGS: Bones: Nondisplaced fracture through 5th metatarsal base is seen. No other fracture or dislocation. Mild right foot osteoarthritic changes are seen. Well defined plantar calcaneal enthesophyte is noted. No suspicious bony lesions. Soft tissues: Mild soft tissue swelling over 5th metatarsal base fracture site is seen. No tibiotalar joint effusion. Achilles tendon appears normal. IMPRESSION: Nondisplaced fracture involving 5th metatarsal base with mild overlying soft tissue swelling. Dictated by: Yifan Polanco M.D. on 10/11/2022 at 8:18 Approved by: Yifan Polanco M.D. on 10/11/2022 at 8:19
== END ==
PROVIDERS: PCP Internal Medicine; Referring Provider Registered Nurse; Visit Provider Registered Nurse
DX: S92.354A Nondisplaced fracture of fifth metatarsal bone, right foot, initial encounter for closed fracture (principal); S99.811A Other specified injuries of right ankle, initial encounter; M25.571 Pain in right ankle and joints of right foot; M79.89 Other specified soft tissue disorders; X58.XXXA Exposure to other specified factors, initial encounter
CPT/HCPCS: 73610; 73630

== ENCOUNTER → 2022-11-22 16:21 | Outpatient (ROUT) | payer OTHER, MEDICARE, SELFPAY ==
[2022-11-22 18:03] LABS: Influenza A - CEPHEID Flu A NEGATIVE (NEGATIVE); Influenza B - CEPHEID Flu B NEGATIVE (NEGATIVE); Respiratory Syncytial Virus Negative (Negative)
[2022-11-22 18:14] LABS: COVID-19 CEPHEID 4-PLEX PCR Negative (Negative)
== END ==
PROVIDERS: PCP Internal Medicine; Visit Provider Internal Medicine
DX: R05.9 Cough, unspecified (principal); R06.2 Wheezing
CPT/HCPCS: 0241U

== ENCOUNTER → 2022-12-19 11:49 | Outpatient (CLI) | payer OTHER, SELFPAY ==
--- NOTE | 2022-12-19 11:59 | DI.RAD.S_ITS ---
PROCEDURE: XR FOOT RT MIN 3V INDICATIONS: POSSIBLE FRACTURE TECHNIQUE: 3 views of the foot were acquired. COMPARISON: [facility], CR, XR FOOT RT MIN 3V, 10/11/2022, 7:56. FINDINGS: Bones: Again noted is nondisplaced fracture through base of 5th metatarsal bone with increased sclerosis at the site of fracture. Partial bony union is seen in 5th metatarsal base. No new fracture or dislocation. Right foot osteoarthritic changes are seen. Well-defined plantar and dorsal calcaneal fights are also noted. No suspicious bony lesions. Soft tissues: No tibiotalar joint effusion. Achilles tendon appears normal. IMPRESSION: Healing at patient's known 5th metatarsal base fracture site. No new fracture or dislocation. Right foot osteoarthritis. Calcaneal enthesophytes. Dictated by: Yifan Polanco M.D. on 12/19/2022 at 13:48 Approved by: Yifan Polanco M.D. on 12/19/2022 at 13:49
== END ==
PROVIDERS: PCP Internal Medicine; Referring Provider Internal Medicine; Visit Provider Internal Medicine
DX: S92.354D Nondisplaced fracture of fifth metatarsal bone, right foot, subsequent encounter for fracture with routine healing (principal); M19.071 Primary osteoarthritis, right ankle and foot; M77.31 Calcaneal spur, right foot; X58.XXXD Exposure to other specified factors, subsequent encounter
CPT/HCPCS: 73630

== ENCOUNTER → 2024-08-05 16:02 | Outpatient (CLI) | payer OTHER, SELFPAY ==
--- NOTE | 2024-08-05 16:04 | DI.RAD.S_ITS ---
PROCEDURE: XR CHEST 2V INDICATIONS: COUGH TECHNIQUE: 2 views of the chest were acquired. COMPARISON: [facility], CR, XR CHEST 1V, 07/23/2022, 6:13. FINDINGS: Surgical changes and devices: None. Lungs and pleura: Lungs are somewhat hypo aerated hypoaerated without definite focal lung consolidation. No pleural effusion or pneumothorax. Mediastinum: Mediastinal contours are normal. Heart size is normal. Bones and chest wall: No suspicious bony abnormalities. Soft tissues appear unremarkable. Thoracic kyphosis. IMPRESSION: No acute cardiopulmonary abnormality is seen. Dictated by: Apollo Samuel M.D. on 08/06/2024 at 8:58 Approved by: Apollo Samuel M.D. on 08/06/2024 at 9:00
== END ==
LOC: RAD 16:03
PROVIDERS: PCP Internal Medicine; Referring Provider Internal Medicine; Visit Provider Internal Medicine
DX: R05.3 Chronic cough (principal); R04.2 Hemoptysis
CPT/HCPCS: 71046

== ENCOUNTER → 2024-09-17 14:02 | Outpatient (CLI) | payer OTHER, SELFPAY ==
--- NOTE | 2024-09-17 14:05 | DI.RAD.S_ITS ---
PROCEDURE: XR DEXA AXIAL SKELETON INDICATIONS: MENOPAUSE,OSTEOPORSIS COMPARISON: [facility], CR, XR DEXA AXIAL SKELETON, 09/07/2022, 15:31. FINDINGS: Lumbar Spine: Bone mineral density 0.745 g/cm2, T score -2.7, compared to -3.2. Left Femoral Neck: Bone mineral density 0.583 g/cm2, T score -2.4, compared to -2.2. Left Hip: Bone mineral density 0.771 g/cm2, T score -1.4, compared to -1.3. Fracture Risk Calculation (when applicable): 10-year fracture risk of a major osteoporotic fracture 15 percent and of a hip fracture 22 percent. (T score greater or equal to -1.0 to: NORMAL) (T score from -1.1 to -2.4: OSTEOPENIA) (T score less than or equal to -2.5: OSTEOPOROSIS) IMPRESSION: Osteoporosis in the lumbar spine as severe osteopenia in the femoral neck mildly improved compared to prior exam. Follow-up guidelines as follows: Osteoporosis: Consider a repeat DEXA and Vertebral Fracture Assessment (VFA) exam in 2 years or sooner if medically necessary, to reassess this patient's status. Osteopenia: Consider a repeat DEXA in 2-3 years to reassess this patient's status, or if there is a new clinical indication. Normal: Consider a repeat DEXA in 5 years or sooner, or if there is a new clinical indication. All treatment decisions require clinical judgment and consideration of individual patient factors, including patient preferences, comorbidities, previous drug use, risk factors not captured in the FRAX model (e.g., frailty, falls, vitamin D deficiency, increased bone turnover, interval significant decline in bone density ) and possible under- or over-estimation of fracture risk by FRAX. In addition, the NOF Guide recommends that FDA-approved medical therapies be considered in postmenopausal women and men age >= 50 years with a: * Hip or vertebral (clinical or morphometric) fracture * T-score of <=-2.5 at the spine or hip * Ten-year fracture probability by FRAX of >= 3% for hip fracture or >=20% for major osteoporotic fracture. Dictated by: Audra Barraza M.D. on 09/17/2024 at 20:40 Approved by: Audra Barraza M.D. on 09/17/2024 at 20:41
== END ==
LOC: RAD 14:04
PROVIDERS: PCP Family Medicine; Referring Provider Internal Medicine; Visit Provider Internal Medicine
DX: Z78.0 Asymptomatic menopausal state (principal); M81.0 Age-related osteoporosis without current pathological fracture; M85.852 Other specified disorders of bone density and structure, left thigh
CPT/HCPCS: 77080